=== PATIENT | female | born 1960 | race Caucasian/White ===

== ENCOUNTER 2020-04-16 10:05 | Outpatient (CLI) | payer OTHER, SELFPAY ==
--- NOTE | ~2020-04-16 | MM_ITS ---
EXAMINATION: MM screening bruno BI w davidson HISTORY: Screening TECHNIQUE: Craniocaudal and mediolateral oblique 3-D tomosynthesis images were obtained and synthetic 2-D images were generated. CAD analysis was submitted and interpreted. COMPARISON: No prior mammogram is available for comparison at this institution. BREAST PARENCHYMAL COMPOSITION: There are scattered areas of fibroglandular density. FINDINGS: There is no evidence of suspicious mass, calcification, or architectural distortion to sugg est malignancy in either breast. There has been no suspicious interval change. IMPRESSION: 1. No mammographic evidence of malignancy. 2. Recommend routine screening mammography in one year. BI-RADS Category 1: Negative Reviewed, dictated and finalized at location A.
--- NOTE | ~2020-04-16 | DEXA_ITS ---
Bone Density Report Name: Rosette Tony Age: 60 Sex: Female Ethnicity: White Date of : 1960 Indication: postmenopausal; height loss; hysterectomy; Referring Provider: PHYSICIAN NOT ON STAFF Study: Bone densitometry was performed. Exam Date: April 16, 2020 Accession number: [id number] Bone Density: Region BMD T-score Z-score Classification AP Spine (L1, L2, L3) 0.846 -1.6 -0.3 Osteopenia Femoral Neck (Left) 0.619 -2.1 -0.8 Osteopenia Total Hip (Left) 0.807 -1.1 -0.2 Osteopenia Total Hip Bilateral Avg 0.790 -1.3 -0.4 Osteopenia Femoral Neck (Right) 0.594 -2.3 -1.1 Osteopenia Total Hip (Right) 0.772 -1.4 -0.5 Osteopenia World Health Organization criteria for BMD impression classify patients as: Normal (T-score at or above -1.0), Osteopenia (T-score between -1.0 and -2.5), or Osteoporosis (T-score at or below -2.5). 10-year Fracture Risk(1): Major Osteoporotic Fracture 10% Hip Fracture 2.5% Reported Risk Factors: [place] (), Neck BMD=0.594, BMI=27.4, smoking (1) FRAX(R) Version 3.08. Fracture probability calculated for an untreated patient. Fracture probability may be lower if the patient has received treatment. Clinical Information Provided by Patient: Smokes Has the following medical conditions: Hysterectomy Patient maximum height was 68 Menopause Age: 50 No regular weight bearing exercise Drinks caffeinated beverages Onset of menses at age 15 Number of children 0 Impression: The patient has low bone mass, based on the Right Femoral Neck T-score. The patient has an estimated ten-year risk of hip fracture of 2.5% and an estimated ten-year risk of major fracture of 10%, based on the WHO FRAX algorithm. The patient has risk factors, including: smoking. Discussion: BONE DENSITY IS LOW AT ONE OR MORE SKELETAL SITES. This patient's lowest T-score is low at one or more skeletal sites. It meets the World Health Organization's (WHO) criteria for ?low bone mass? (T-score between -1.0 and -2.5). The patient's 10-year risk of fracture as calculated by FRAX is less than the threshold where pharmacological therapy is recommended by the National Osteoporosis Foundation (NOF). However, all treatment decisions require clinical judgment and consideration of individual patient factors, including patient preferences, comorbidities, previous drug use, risk factors not captured in the FRAX model (e.g., frailty, falls, vitamin D deficiency, increased bone turnover, interval significant decline in bone density) and possible under or overestimation of fracture risk by FRAX. The patient should follow a healthful lifestyle (good nutrition with adequate calcium and vitamin D, and appropriate weight-bearing exercise). Follow-Up: Consider repeating this study in 2 to 3 years to reassess this patient's status,
== END 2020-04-16 10:06 | disposition home or self-care (01) ==
DX: Z12.31 Encounter for screening mammogram for malignant neoplasm of breast (principal); Z78.0 Asymptomatic menopausal state; M85.80 Other specified disorders of bone density and structure, unspecified site
CPT/HCPCS: 77063; 77067; 77080

== ENCOUNTER 2020-04-21 13:05 | Outpatient (CLI) | payer OTHER, MEDICARE, SELFPAY ==
--- NOTE | ~2020-04-21 | XR_ITS ---
EXAMINATION: XR chest 2V 04/21/2020 13:37 INDICATION: Cough and congestion PROCEDURE: 2 view chest COMPARISON: No prior studies for comparison. FINDINGS: The lungs are clear. The cardiomediastinal silhouette is within normal limits. There are no pleural effusions. There is no pneumothorax suspected. IMPRESSION: 1: NO ACUTE CARDIOPULMONARY DISEASE. Reviewed, dictated and finalized at location B.
== END 2020-04-21 13:06 | disposition home or self-care (01) ==
DX: R05 Cough (principal)
CPT/HCPCS: 71046

== ENCOUNTER 2022-11-30 14:54 | Outpatient (CLI) | payer OTHER, MEDICARE, SELFPAY ==
--- NOTE | ~2022-11-30 | MM_ITS ---
EXAMINATION: MM screening bruno BI w davidson HISTORY: Screening mammogram TECHNIQUE: Craniocaudal and mediolateral oblique 3-D tomosynthesis images were obtained and synthetic 2-D images were generated. CAD analysis was submitted and interpreted. COMPARISON: 04/16/2020 bilateral screening mammogram examination BREAST PARENCHYMAL COMPOSITION: The breasts are almost entirely fatty. FINDINGS: There is no evidence of suspicious mass, calcification, or architectural distortion to sugg est malignancy in either breast. There has been no suspicious interval change. IMPRESSION: 1. No mammographic evidence of malignancy. 2. Recommend routine screening mammography in one year. BI-RADS Category 1: Negative Reviewed, dictated and finalized at location A.
--- NOTE | ~2022-11-30 | DEXA_ITS ---
Bone Density Report Name: KAYLA ADKINS Age: 62 Sex: Female Ethnicity: White Date of : 1960 Indication: postmenopausal; screening for osteoporosis; height loss; asthma or emphysema; hysterectomy; Referring Provider: RICHARDCRUZ Study: Bone densitometry was performed. Exam Date: November 30, 2022 Accession number: [id number] Bone Density: Region BMD T-score Z-score Classification AP Spine(L1-L4) 0.858 -1.7 -0.2 Osteopenia Femoral Neck (Left) 0.562 -2.6 -1.2 Osteoporosis Total Hip (Left) 0.779 -1.3 -0.3 Osteopenia Femoral Neck (Right) 0.559 -2.6 -1.3 Osteoporosis Total Hip (Right) 0.731 -1.7 -0.7 Osteopenia Total Hip Mean 0.755 -1.5 -0.5 Osteopenia World Health Organization criteria for BMD impression classify patients as: Normal (T-score at or above -1.0), Osteopenia (T-score between -1.0 and -2.5), or Osteoporosis (T-score at or below -2.5). 10-year Fracture Risk: FRAX not reported because: Some T-score for Spine Total or Hip Total or Femoral Neck at or below -2.5 Clinical Information Provided by Patient: Smokes Has used the following medications: Vitamin D Has the following medical conditions: Asthma or Emphysema, Hysterectomy Patient maximum height was 68 Menopause Age: 50 No regular weight bearing exercise Drinks caffeinated beverages Onset of menses at age 14 Number of children 0 Impression: The patient has osteoporosis, based on the Left Femoral Neck T-score. The patient has risk factors, including: smoking. Discussion: INCREASED RISK OF FRACTURE. BONE DENSITY IS UNDESIRABLY LOW AT ONE OR MORE SKELETAL SITES, CONSISTENT WITH POSTMENOPAUSAL OSTEOPOROSIS. This patient's lowest T-score meets the World Health Organization's (WHO) criteria for osteoporosis at one or more sites (T-score -2.5 or below). In untreated patients, the risk of osteoporotic fracture increases approximately two-fold for each 1.0 SD decrease in T-score. Low bone density is not the only risk factor for fracture; also consider factors such as patient's age, frailty or poor health, risk of falling, risk of injury, previous osteoporotic fracture, family history of osteoporosis, cigarette smoking, low body weight, etc. Not everyone with low bone mineral density has osteoporosis; osteomalacia and other metabolic bone disorders should also be considered. Patients who have osteoporosis should be evaluated for specific diseases and conditions (secondary causes) that may cause or contribute to bone loss. The [place] Association [employer] Clinical Endocrinologists (AACE) and National Osteoporosis Foundation (NOF) recommend pharmacologic intervention for all postmenopausal women whose T-score is in this range. The patient should follow a healthful lifestyle (good nutrition with adequate calcium and vitamin D, and appropriate weigh
== END 2022-11-30 14:55 | disposition home or self-care (01) ==
LOC: ANHIMG 15:05
PROVIDERS: PCP Family Medicine; Visit Provider Family Medicine
DX: Z12.31 Encounter for screening mammogram for malignant neoplasm of breast (principal); Z78.0 Asymptomatic menopausal state; M85.88 Other specified disorders of bone density and structure, other site; M85.852 Other specified disorders of bone density and structure, left thigh; M85.851 Other specified disorders of bone density and structure, right thigh; M81.0 Age-related osteoporosis without current pathological fracture
CPT/HCPCS: 77063; 77067; 77080

== ENCOUNTER 2025-03-20 10:46 | Outpatient (CLI) | payer OTHER, MEDICARE, SELFPAY ==
--- OUTSIDE RECORDS SUMMARY | 2009-09-05 05:00 | XMS_ITS | Continuity of Care Document ---
Author Organization [facility] Address [address] [place] [address] [place] [address] Phone Care Team Providers Care Journeyman Machinist Name Role Phone Tinsley OD, Laci Unavailable Unavailable Procedures Procedure Date Eye Exam & Treatment Refraction Eye Exam Established Pt Eye Exam & Treatment Refraction Advance Directives Directive Yes / No Effective Date File Name No Information Encounters Encounter Description Practice Location Reason(s) For Visit Diagnoses Date Provider Providers Copied on Encounter [facility], [address] [place] [address] [address], [place], [place], [id number], tel:[phone] [facility] No Information Mar-0 5-201 0 Tinsley OD Laci. [address], [place], [place], Formerly named [facility], . tel:[phone] [facility], [address] [place] [address] [address], [place], [place], [id number], tel:[phone] [facility] No Information Oct-0 2-200 9 Tinsley OD Laci. [address], [place], [address], [place]. tel:[phone] [facility], [address] [place] [address] [address], [place], [place], [id number], tel:[phone] [facility] No Information May- 5-200 8 Tinsley OD Laci. [address], [place], [place], Formerly named [facility], . tel:[phone] Family History Family Member Type Diagnosis Age At Onset No Information Payers Payer name Insurance type Covered green party ID Authoriza tion(s) No Information Social History Type Description Quantity Date Captured Comments Sex Female Smoking Status No Information Chief Complaint And Reason For Visit No Information Reason For Referral Reason For Referral No Information History Of Present Illness Encounter Date Complaint History Of Prese nt Illness No Information Functional Status Date Functional Assessmen t No Information Instructions Date Instruction Additional Infor mation No Information Assessments Type Assessment Date No Information Patient Care Teams Name Effective Dates (start - stop) Status Members No Information
--- NOTE | ~2025-03-20 | DEXA_ITS ---
Bone Density Report Name: KAYLA ADKINS Age: 64 Sex: Female Ethnicity: White Date of : 1960 Indication: osteopenia; height loss; asthma or emphysema; hysterectomy; Referring Provider: RICHARD, CRUZ Study: Bone densitometry was performed. Exam Date: March 20, 2025 Accession number: [id number] Bone Density: Region BMD T-score Z-score Classification AP Spine(L1-L4) 0.860 -1.7 0.0 Osteopenia Femoral Neck (Left) 0.583 -2.4 -0.9 Osteopenia Total Hip (Left) 0.847 -0.8 0.4 Normal Femoral Neck (Right) 0.577 -2.4 -1.0 Osteopenia Total Hip (Right) 0.862 -0.7 0.5 Normal Total Hip Mean 0.854 -0.8 0.5 Normal World Health Organization criteria for BMD impression classify patients as: Normal (T-score at or above -1.0), Osteopenia (T-score between -1.0 and -2.5), or Osteoporosis (T-score at or below -2.5). 10-year Fracture Risk(1): Major Osteoporotic Fracture 13% Hip Fracture 3.6% Reported Risk Factors: [place] (), Neck BMD=0.583, BMI=27.1, smoking (1) FRAX(R) Version 3.08. Fracture probability calculated for an untreated patient. Fracture probability may be lower if the patient has received treatment. Previous Exams: Region Exam Age BMD T-score BMD Change BMD Change Date g/cm2 vs Baseline vs Previous AP Spine (L1-L4) 03/20/2025 64 0.860 -1.7 0.002 (0.2%) 0.002 (0.2%) 11/30/2022 62 0.858 -1.7 Total Hip(Left) 03/20/2025 64 0.847 -0.8 0.040 (5.0%)* 0.068 (8.7%)* 11/30/2022 62 0.779 -1.3 -0.027 (-3.4%) -0.027 (-3.4%) 04/16/2020 60 0.807 -1.1 Total Hip(Right) 03/20/2025 64 0.862 -0.7 0.090 (11.7%)* 0.130 (17.8%)* 11/30/2022 62 0.731 -1.7 -0.040 (-5.2%) -0.040 (-5.2%) 04/16/2020 60 0.772 -1.4 *Denotes significance at 95% confidence level, LSC for AP Spine = 0.022 g/cm2, LSC for Total Hip = 0.027 g/cm2 Clinical Information Provided by Patient: Smokes Has used the following medications: Fosamax (i.e. alendronate), Vitamin D Has the following medical conditions: Asthma or Emphysema, Hysterectomy Patient maximum height was 68 Menopause Age: 50 No regular weight bearing exercise Drinks caffeinated beverages Onset of menses at age 14 Number of children 0 Impression: The patient has low bone mass, based on the Left Femoral Neck T-score. The patient has an estimated ten-year risk of hip fracture of 3.6% and an estimated ten-year risk of major fracture of 13%, based on the WHO FRAX algorithm. The patient has risk factors, including: smoking. No significant bone loss was observed. Discussion: BONE DENSITY IS LOW AT ONE OR MORE SKELETAL SITES. THE PATIENT'S BMD AND CLINICAL RISK FACTORS CONTRIBUTE TO THIS PATIENT'S INCREASED RISK OF FRACTURE. This patient's lowest T-score is low at one or more skeletal sites. It meets the World Health Organization's (WHO) criteria for ?low bone mass? (T-score between -1.0 and -2.5). The patient's 10-year risk of hip fracture as calculated by FRAX exceeds the threshold where pharmacological therapy is recommended by the National Osteoporosis Foundation (NOF). However, all treatment decisions require clinical judgment and consideration of individual patient factors, including patient preferences, comorbidities, previous drug use, risk factors not captured in the FRAX model (e.g., frailty, falls, vitamin D deficiency, increased bone turnover, interval significant decline in bone density) and possible under or overestimation of fracture risk by FRAX. The patient should follow a healthful lifestyle (good nutrition with adequate calcium and vitamin D, and appropriate weight-bearing exercise). Follow-Up: Consider a repeat BMD and Vertebral Fracture Assessment (VFA) exam in 2 years or sooner if medically necessary, to reassess this patient's status. Reported by: CHRIS on 03/20/2025 11:34:00 AM. Reviewed, dictated and finalized at location A.
--- OUTSIDE RECORDS SUMMARY | 2025-03-20 11:48 | XMS_ITS | Encounter Summary ---
Author Organization [facility] Address [address] [place] [address] Care Team Providers Care Salt Miner Name Role Phone Amanda Stout NP Primary Care Provider [phone] Encounter Details Date Type Department Care Team (Latest Contact Info) Description 02/26/2025 Results Follow-Up [facility] Family Medicine [address] [address] Amanda Stout, WO[employer] R[employer]ER [address] [address] Thyroid Function [place], Comprehensive metabolic panel, Hemoglobin A1c, Lipid panel Social History Tobacco Use Types Packs/Day Years Used Date Smoking Tobacco: Some Days Cigarettes 1 42.7 Started: 2022 Smokeless Tobacco: Never Comments:Trying to quit Alcohol Use Standard Drinks/Week Comments Yes 0 (1 standard drink = 0.6 oz pur e alcohol) AUDIT-C Answer Date Recorded Q1: How often do you have a drink containing alc ohol? 2-4 times a month 09/01/2023 Q2: How many drinks containi ng alcohol do you have on a typical day when you are drinking? 1 or 2 09/01/2023 Frequency of Binge Drinking Not on file 08/05 PHQ-2 Answer Date Recorded PHQ-2 Total Score (If total score is 3 or more points, staff should administer the PHQ-9) 0 09/25/2024 PHQ-9 Answer Date Recorded PHQ-9 Total Score 0 09/25/2024 Personal Safety Answer Date Recorded Have you ever been in or are you currently in a harmful physical or emotional relationship or is someone making you feel afraid or unsafe? 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 Have a nice day! JOANNA Neves * Result Encounter Note - Amanda Stout NP - 02/27/2025 5:13 AM CDT Lab results dated 02/26/2025 are as follows: 1. Minimally elevated fasting glucose, otherwise unremarkable CMP 2. Elevated hemoglobin A1c consistent with prediabetes 3. Elevated total/LDL cholesterol and triglycerides, worse than previous 4. Normal TSH level documented in this encounter Plan of Treatment Not on file documented as of this encounter Visit Diagnoses Not on filedocumented in this encounter Care Teams Salt Miner Relationship Specialty Start Date End Date Amanda Stout NP PCP - General Family Practice 04/17/20 documented as of this encounter
--- OUTSIDE RECORDS SUMMARY | 2025-03-20 11:48 | XMS_ITS | Encounter Summary ---
Author Organization [facility] Address [address] [place] [address] Care Team Providers Care Technical Training Instructor Name Role Phone Amanda Stout NP Primary Care Provider [phone] Reason for Visit * Reason Onset Date Comments Medical Question/Miscellaneous 03/19/2025 Encounter Details Date Type Department Care Team (Late st Contact Info) Description 03/19/2025 Telephone [facility] Primary Care at [address] [address] Amanda Stout NP [facility] [address] Medical Question/Miscellaneous Social History Tobacco Use Types Packs/Day Years [...] on file 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 * Telephone Encounter - Tracy Ponce - 03/19/2025 2:46 PM CDT Medical Question/Miscellaneous Caller???s Concern: called to get the Dexa Bone scan orders faxed to them The patient is supposed to be getting it done tomorrow and they need them ELISA Please fax to [phone] Does message need to be routed? Yes-Action Needed documented in this encounter Plan of Treatment Not on file documented as of this encounter Visit Diagnoses Not on filedocumented in this encounter Care Teams Technical Training Instructor Relationship Specialty Start Date End Date Amanda Stout NP PCP - General Family Practice 04/17/20 documented as of this encounter
--- OUTSIDE RECORDS SUMMARY | 2025-03-20 11:48 | XMS_ITS | Encounter Summary ---
Author Organization [facility] Healthcare Address [address] [place] [address] Care Team Providers Care Spring Coiler Hand Name Role Phone Amanda Stout NP Primary Care Provider [phone] Reason for Visit * Reason Onset Date Comments Billing Question 02/18/2025 Encounter Details Date Type Department Care Team ([facility] st Contact Info) Description 02/18/2025 Telephone [facility] Primary Care at [address] [phone] Amanda Stout EMPLOYMENT ATTORNEY [facility] [address] Billing Question Social History Tobacco Use Types Packs/Day Years [...] on file 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 Yes. What did billing tell the patient? That charge was Amanda [place] for 09/06/23 Additional Comments: Patient called stating she received bill from [employer] for $75. She was told it was for a charge from Amanda [place] from 09/06/23, but she didn't see Amanda that day. Had her call [facility] to check and see what charge was for. Does message need to be routed? No documented in this encounter Plan of Treatment Not on file documented as of this encounter Visit Diagnoses Not on filedocumented in this encounter Care Teams Spring Coiler Hand Relationship Specialty Start Date End Date Amanda Stout NP PCP - General Family Practice 04/17/20 documented as of this encounter
--- OUTSIDE RECORDS SUMMARY | 2025-03-20 11:48 | XMS_ITS | Encounter Summary ---
Author Organization [facility] Care Team Providers Care Cost Control Supervisor Name Role Phone No, Physician Primary Care Provider [phone] Kerri Landaverde MD Primary Care Provider [phone] Amanad Stout NP Primary Care Provider [phone] Encounter Details Date Type Department Care Team (Latest Contact Info) Description 12/30/2017 Orders Only [facility] ProvidereLia MD [address] [place] [address] Social History Tobacco Use Types Packs/Day Years Used Date Smoking Tobacco: Every Day Smokeless Tobacco: Never Alcohol Use Standard Drinks/Week Comments Yes 0 (1 standard drink = 0.6 oz pur e alcohol) Comments Unknown Sex and Gender Information Value Date Recorded Sex Assigned at Not on file 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 us Historical Provider Final Res ult documented in this encounter Visit Diagnoses Not on filedocumented in this encounter Additional Health Concerns Infection Onset Date Last Indicated Resolved Time COVID: Suspected 05/07/2021 05/07/2021 05/07/2021 9:16 PM CDT documented as of this encounter Care Teams Cost Control Supervisor Relationship Specialty Start Date End Date No, Physician PCP - General 12/30/17 11/28/19 Kerri Landaverde MD PCP - General Family Medicine 11/29/19 04/16/20 Amanda Stout NP PCP - General Family Practice 04/17/20 documented as of this encounter
--- OUTSIDE RECORDS SUMMARY | 2025-03-20 11:48 | XMS_ITS | Clinical Summary ---
[facility] [address] [place] [address] Care Team Providers Care Armature [employer] Name Role Phone Amanda Stout NP Primary Care Provider [phone] Allergies Active Allergy Reactions Criticality Noted Date Comments Morphine Hives Medium 08/28/2023 Medications clonazePAM (KlonoPIN) 0.5 mg tablet 1 tablet (0.5 mg total) nightly as needed for anxiety 11/06/19 20 Active ARIPiprazole (ABILIFY) 5 mg tabletIndications :mood Take 1 tablet (5 mg total) by mouth every morning 10/30/19 21 Active lamoTRIgine (LaMICtal) 25 mg tabletIndications :mood Take 1 tablet (25 mg total) by mouth every morning 11/24/19 22 Active alendronate (FOSAMAX) 70 mg tablet Take 1 tablet (70 mg total) by mouth every 7 days Take in the morning with a full glass of water, on an empty stomach, and do not take anything else by mouth or lie down for the next 30 min. 12 tablet 09/05/19 24 Active buPROPion SR (WELLBUTRIN SR) 150 mg 12 hr tablet Take 1 tablet (150 mg total) by mouth daily 11/22/19 24 Active dextroamphetamine -amphetamine (ADDERALL) 20 mg tablet Take 1 tablet (20 mg total) by mouth daily 11/26/19 24 Active albuterol HFA (Ventolin HFA) 90 mcg/actuation inhalerIndication s:Chronic obstructive pulmonary disease, unspecified COPD type ([facility]) Inhale 2 puffs every 4 (four) hours as needed for wheezing or shortness of breath 18 g 5 02/02/20 Active tiotropium-olodat Anuj (STIOLTO) 2.5-2.5 mcg/actuation inhaler Inhale 1 puff daily 1 each 3 04/09/20 24 2024 Active losartan (COZAAR) 100 mg tabletIndications :Primary hypertension Take 1 tablet (100 mg total) by mouth daily 90 tablet 1 09/26/19 25 Active gabapentin (NEURONTIN) 300 mg capsuleIndication s:Chronic bilateral low back pain with bilateral sciatica Take 1 capsule (300 mg total) by mouth 3 (three) times a day 270 capsule 1 09/26/19 25 Active amLODIPine (NORVASC) 10 mg tabletIndications :Primary hypertension Take 1 tablet (10 mg total) by mouth daily 90 tablet 1 10/04/19 25 2024 Active cetirizine (ZyrTEC) 10 mg tabletIndications :Non-seasonal allergic rhinitis due to other allergic trigger TAKE 1 TABLET(10 MG) BY MOUTH DAILY 90 tablet 01/18/20 25 Active montelukast (SINGULAIR) 10 mg tablet TAKE 1 TABLET(10 MG) BY MOUTH EVERY NIGHT 90 tablet 02/16/20 25 Active atorvastatin (LIPITOR) 80 mg tabletIndications :Mixed hyperlipidemia Take 1 tablet (80 mg total) by mouth daily 90 tablet 1 02/28/20 [address] (NexIUM) 40 mg capsuleIndication s:Gastroesophagea l reflux disease, unspecified whether esophagitis present TAKE 1 CAPSULE BY MOUTH DAILY BEFORE BREAKFAST 90 capsule 1 03/11/[address] (NexIUM) 40 mg capsuleIndication s:Gastroesophagea l reflux disease, unspecified whether esophagitis present Take 1 capsule by mouth daily before breakfast. 90 capsule 1 09/26/19 25 2024 Discontinued atorvastatin (LIPITOR) 40 mg tabletIndications :hyperlipidemia Take 1 tablet (40 mg total) by mouth nightly 90 tablet 1 09/26/19 25 2024 Discontinued(A lternate therapy) Active Problems Problem Noted Date Diagnosed Date Age-related osteoporosis wit hout current pathological fracture 09/23/2023 Assessment & Plan (09/25/2024 7:56 PM CDT): Continued on Fosamax 70 mg weekly Previously on vitamin-D supplement, not currently taking, will recheck vitamin-D level Assessment & Plan (09/23/2023 7:46 AM CDT): New diagnosis Continued on Fosamax Encouraged calcium and vitamin-D supplementation in daily weight-bearing exercise Screening for colon cancer 07/19/2022 Assessment & Plan (07/19/2022 9:05 AM SECURITY REP): Referral made to die barber for consideration of screening colonoscopy. Primary hypertension 07/19/2022 Assessment & Plan (09/25/2024 7:54 PM CDT): Uncontrolled Continued on losartan 100 mg daily and amlodipine 5 mg daily Encouraged to monitor blood pressure at home the next 2 days and notify office if readings Assessment & Plan (12/30/2023 10:39 AM CDT): Chronic, significantly improved with increase in dose of medication and addition of medication Continued on losartan 100 mg daily and amlodipine 5 mg daily Encouraged to continue to monitor blood pressure at home and to notify office with any concerns Recommended follow-up in 4 weeks Assessment & Plan (12/15/2023 5:26 AM CDT): Chronic, uncontrolled on medication Recommended ER evaluation, declined Increased dose of losartan from 25 mg daily to 100 mg daily Advised to continue to monitor blood pressure daily, recommended follow-up next week, however unavailable next week, instructed to send a [employer] message next week with update on blood pressure reading and follow-up in 2 weeks Assessment & Plan (09/23/2023 7:37 AM CDT): Chronic, uncontrolled on medication Continued on lisinopril HCT Recommended follow-up in 3 months for recheck Assessment & Plan (07/19/2022 9:06 AM SECURITY REP): Chronic, with worsened/uncontrolled systolic, controlled diastolic at today's visit-continued on losartan. Encouraged to monitor at home and to notify office if blood pressure is averaging 140/90 or greater so adjustment can be made in dose of losartan. Vitamin D deficiency 07/19/2022 Assessment & Plan (09/25/2024 7:55 PM CDT): Controlled with supplementation, however not currently taking Will monitor Assessment & Plan (09/23/2023 7:46 AM CDT): Chronic, controlled with supplementation Encouraged to continue vitamin-D supplement Assessment & Plan (07/19/2022 9:03 AM SECURITY REP): Chronic, stability unknown, labs pending previously ordered, uncontrolled at last check, not on supplement-reordered vitamin-D 25 [place]. Encounter for Medicare annual wellness exam 07/04 Assessment & Plan (09/25/2024 7:55 PM CDT): Reviewed past and current medical history, surgical history, social history, family history, current medications, and allergies. The chart was updated to identify any changes in these areas. Assessment & Plan (09/23/2023 7:47 AM CDT): Reviewed past and current medical history, surgical history, social history, family history, current medications, and allergies. The chart was updated to identify any changes in these areas. A ROS and PE were performed. Medications were ordered. Discussed screening colonoscopy, well woman exam/cervical cancer screening, screening mammogram, monthly breast self-exams, bone density testing, and recommended immunizations. Patient will follow-up in 3 months for further evaluation and management or sooner if needed. Assessment & Plan (07/19/2022 9:07 AM SECURITY REP): Reviewed past and current medical history, surgical history, social history, family history, current medications, and allergies. A ROS and PE were performed. Medications and labs were ordered and referrals were made. Discussed screening colonoscopy, well woman exam/cervical cancer screening, screening mammogram, monthly breast self- exams, bone density testing, and recommended immunizations. Patient will follow-up in 6 months for further evaluation and management or sooner if needed. Osteopenia of multiple sites 11/29/2021 Assessment & Plan (09/25/2024 7:56 PM CDT): Continued on Fosamax 70 mg weekly Previously on vitamin-D supplement, not currently taking, will recheck vitamin-D level Assessment & Plan (09/23/2023 7:45 AM CDT): Chronic, stability unknown Continued on Fosamax Encouraged calcium and vitamin-D supplementation in daily weight-bearing exercise Assessment & Plan (07/19/2022 9:07 AM SECURITY REP): Chronicity and stability unknown-ordered bone density test. Assessment & Plan (11/29/2021 10:44 AM CDT): Ordered bone density test. Elevated blood sugar 12/12/2020 Assessment & Plan (09/25/2024 7:52 PM CDT): Controlled Reviewed 11/16/23 [id number] Recommended diet low in concentrated sweets, such as desserts, juice, soda, and sweet tea, and limiting starchy foods, such as white potatoes, rice, pasta, and corn Assessment & Plan (09/23/2023 7:45 AM CDT): Chronic, stable, with most recent hemoglobin A1c normal, dated 10/12/2022 Continue to monitor periodically Assessment & Plan (07/19/2022 9:14 AM SECURITY REP): Chronic, improved at last check-ordered CMP and hemoglobin A1c, CMP ordered previously never completed. Assessment & Plan (12/12/2020 6:26 PM CDT): Chronic, stable-ordered hgbA1C recently, however not done with CMP and lipid panel. Ordered hgbA1C and CMP to be done prior to next visit in 3 months. Mixed hyperlipidemia 12/08/2020 Assessment & Plan (09/25/2024 7:50 PM CDT): Controlled Continued on atorvastatin 40 mg daily Assessment & Plan (09/23/2023 7:34 AM CDT): Chronic, uncontrolled on medication, with dose adjustment made, due for recheck Continued on atorvastatin 40 mg daily Encouraged to get lipid panel done, previously ordered Assessment & Plan (07/19/2022 9:09 AM SECURITY REP): Chronic, improved, uncontrolled at last check, lipid panel ordered previously pending completion, on medication-continued on atorvastatin. Reordered lipid panel. Assessment & Plan (11/29/2021 10:45 AM CDT): Chronic, improved on medication, however states has been off atorvastatin for several weeks-advised to restart atorvastatin as directed, refills sent to pharmacy, lipid panel ordered to be done prior to next visit, but at least 4 weeks after restarting medication. Assessment & Plan (12/12/2020 6:24 PM CDT): Recent finding, improved slightly on recheck-started on atorvastatin 20 mg once daily in PM for elevated lipids. Ordered 12-hour fasting lab work done prior to next visit in 3 months. Assessment & Plan (12/08/2020 2:32 PM CDT): Ordered repeat lipid panel. Chronic neck pain 12/08/2020 Assessment & Plan (09/25/2024 7:50 PM CDT): Uncontrolled, but not as problematic as low back Increased gabapentin to TID Ordered x-rays in the past, not done, however can reorder if/when interested, and can also consider referral to physical therapy Assessment & Plan (12/15/2023 5:27 AM CDT): Chronic, stable, controlled with OTC medication Encouraged to continue OTC medication as directed as needed, can discuss prescription pharmaceutical options if/when needed Can ordered x-rays and consider referral to physical therapy if/when interested Assessment & Plan (09/23/2023 7:44 AM CDT): Chronic, stable, controlled with OTC medication Encouraged to continue OTC medication as directed as needed, can discuss prescription pharmaceutical options if/when needed Can ordered x-rays and consider referral to physical therapy if/when interested Assessment & Plan (07/19/2022 9:16 AM SECURITY REP): Chronic, stable, controlled with OTC medication PRN-continued on OTC medication for symptoms PRN. Imaging previously ordered never completed, can reorder imaging if/when interested. Assessment & Plan (12/08/2020 2:32 PM CDT): See plan of care for chronic bilateral low back pain with bilateral sciatica. Need for vaccination 04/23/2020 Assessment & Plan (07/19/2022 9:08 AM SECURITY REP): Seasonal influenza and Prevnar 20 vaccine given. Assessment & Plan (04/23/2020 4:46 PM CDT): Influenza and Pneumovax 23 given today and recommendations for additional vaccines discussed with patient. Family history of first degree relative with dem entia 04/23/2020 Assessment & Plan (04/23/2020 4:50 PM CDT): Referred to neurology. Family history of brain aneurysm 04/23/2020 Assessment & Plan (04/23/2020 4:50 PM CDT): Referred to neurology. Post-menopause 03/26/2020 Assessment & Plan (07/19/2022 9:06 AM SECURITY REP): Ordered bone density test. Assessment & Plan (04/23/2020 4:45 PM CDT): Requested results of bone density test from [facility]. Assessment & Plan (03/26/2020 6:16 PM CDT): Ordered bone density test. Screening for breast cancer 03/26/2020 Assessment & Plan (07/19/2022 9:05 AM SECURITY REP): Ordered screening mammogram. Assessment & Plan (11/29/2021 10:44 AM CDT): Ordered screening mammogram. Assessment & Plan (04/23/2020 4:44 PM CDT): Requested results of screening mammogram from [facility]. Patient states she received notification that her test was normal. Assessment & Plan (03/26/2020 6:17 PM CDT): Ordered screening mammogram. Gastroesophageal reflux disease 03/26/2020 Assessment & Plan (09/25/2024 11:38 AM CDT): Controlled Continued on Nexium Assessment & Plan (09/23/2023 7:37 AM CDT): Chronic, stable, controlled with medication Continued on Nexium Assessment & Plan (07/19/2022 9:12 AM SECURITY REP): Chronic, stable, controlled with medication-continued on esomeprazole, refills sent to pharmacy per patient request. Assessment & Plan (04/23/2020 4:49 PM CDT): Chronic, stable, uncontrolled on medication prescribed at last visit-Started on Nexium 40 mg once daily in the morning 1/2 hour before breakfast and decreased Pepcid to 20 mg once daily in the PM. Assessment & Plan (03/26/2020 6:15 PM CDT): Chronic, uncontrolled-Started on Pepcid 20 mg BID 1/2 hour before meals. Advised to avoid foods that precipitate or exacerbate symptoms. Tobacco abuse 03/26/2020 Assessment & Plan (09/23/2023 7:33 AM CDT): Chronic, currently on nicotine gum Discussion regarding smoking cessation >5 minutes Switch from nicotine gum to Nicoderm patch, cautioned not to smoke while wearing patch and encouraged to rotate application site to avoid skin irritation Assessment & Plan (07/19/2022 9:05 AM SECURITY REP): Chronic, has prescription for Zyban and nicotine patches, counseled on the importance of cessation, however states she is not yet ready to quit. Assessment & Plan (11/29/2021 10:44 AM CDT): Chronic-prescribed the nicotine patch as directed. Encouraged not to smoke while using the patch. Assessment & Plan (04/23/2020 4:44 PM CDT): Approximately 5 minutes spent discussing with patient different options for smoking cessation, states wants to quit smoking, but also wants her to quit with her. She states she is not all in just yet. Assessment & Plan (03/26/2020 6:18 PM CDT): Discussed cessation, offered suggestions and advised can prescribe medication to facilitate smoking cessation if/when interested. COPD (chronic obstructive pulmonary disease) Assessment & Plan (09/25/2024 7:48 PM CDT): Controlled Continued on Anoro and albuterol inhalers Encouraged to follow-up with tank truck operator as recommended Assessment & Plan (12/15/2023 5:27 AM CDT): Chronic, stable, controlled on medication Continued on Anoro and albuterol inhalers Encouraged to follow-up with tank truck operator as recommended Assessment & Plan (09/23/2023 7:40 AM CDT): Chronic, stable, controlled on medication Continued on Anoro and albuterol inhalers Encouraged to follow-up with tank truck operator as recommended Assessment & Plan (07/19/2022 9:15 AM SECURITY REP): Chronic, stable, with symptoms controlled on inhalers-continued on Anoro and albuterol MDI. Encouraged to follow-up with tank truck operator as recommended and to complete follow-up pulmonary function test and CT chest. Assessment & Plan (11/29/2021 10:47 AM CDT): Chronic, was with worsening cough, previously referred to and established care with a tank truck operator, Dr. Ngo, had PFT, CT chest, and echocardiogram done, has not seen tank truck operator since testing, also not using inhaler as directed due to cost-advised to call tank truck operator today to schedule a follow-up visit, also to discuss alternatives to Combivent. Prescription for benzonatate capsules sent to pharmacy to use as directed as needed for cough. Assessment & Plan (04/23/2020 4:54 PM CDT): Chronic, stable, controlled on medications-advised to continue Symbicort BID and encouraged to rinse mouth after use. Requested results of chest xray from [facility]. Assessment & Plan (03/26/2020 6:19 PM CDT): Chronic, stable, persistent-Advised to continue Symbicort. Chest xray ordered to be done prior to next visit. Chronic bilateral low back pain with bilateral s ciatica 03/26/2020 Assessment & Plan (09/25/2024 7:50 PM CDT): Uncontrolled Increased gabapentin to TID Ordered x-rays in the past, not done, however can reorder if/when interested, and can also consider referral to physical therapy Assessment & Plan (09/23/2023 7:41 AM CDT): Chronic, stable, controlled with OTC medication Encouraged to continue OTC medication as directed as needed, can discuss prescription pharmaceutical options if/when needed Ordered x-rays in the past, not done, however can reorder if/when interested, and can also consider referral to physical therapy Assessment & Plan (07/19/2022 9:17 AM SECURITY REP): Chronic, stable, controlled with OTC medication PRN-continued on OTC medication for symptoms PRN. Imaging previously ordered never completed, can reorder imaging if/when interested. Assessment & Plan (12/08/2020 2:30 PM CDT): Started on gabapentin 300 mg once daily, advised can increase as soon as tomorrow to twice daily, and eventually can take three times daily if needed (instructed if stopping gabapentin, must gradually taper off medication). Also, referred to pain management for further evaluation and management. Assessment & Plan (03/26/2020 6:24 PM CDT): Discussed OTC medications such as Tylenol, ibuprofen (Motrin/Advil), naproxen sodium (Aleve) and Excedrin Migraine for headache and low back pain. Instructed to watch for GI symptoms if taking NSAIDs. Migraine without status migrainosus, not intract able 02/03/2018 Assessment & Plan (09/25/2024 7:44 PM CDT): Controlled Encouraged to continue OTC medication as directed as needed, can discuss prescription pharmaceutical options if/when needed Assessment & Plan (09/23/2023 7:43 AM CDT): Chronic, stable, controlled with OTC medication Encouraged to continue OTC medication as directed as needed, can discuss prescription pharmaceutical options if/when needed Assessment & Plan (07/19/2022 9:10 AM SECURITY REP): Chronic, stable, controlled with OTC medication PRN-will monitor for increased frequency and/r severity of headaches. Lumbar degenerative disc disease 02/01/2018 Assessment & Plan (09/23/2023 7:42 AM CDT): Chronic, stability unknown, with chronic low back pain Low back pain chronic, stable, controlled with OTC medication Encouraged to continue OTC medication as directed as needed, can discuss prescription pharmaceutical options if/when needed Ordered x-rays in the past, not done, however can reorder if/when interested, and can also consider referral to physical therapy Assessment & Plan (07/19/2022 9:12 AM SECURITY REP): Chronic, with episodic low back pain controlled with OTC medication PRN-will monitor for increase in frequency and/or severity of pain. X-rayed ordered previously never completed, can reorder imaging if/when interested. Mild recurrent major depression 02/01/2018 Assessment & Plan (09/25/2024 7:44 PM CDT): Controlled Reviewed PHQ-9=0, ERLINDA-7=1 Continued on Abilify, bupropion SR, clonazepam, and Lamictal per Psychiatry Encouraged to follow-up with Psychiatry as recommended Advised if suicidal ideation or thoughts of harming self or others, go to ER and/or call [phone] for assistance Assessment & Plan (12/15/2023 5:26 AM CDT): Chronic, stability unknown, uncontrolled with medication Reviewed PHQ-9=14, ERLINDA-7=18, attributes scores to recent DUI Continued on Abilify, bupropion SR, clonazepam, and Lamictal per Psychiatry Encouraged to follow-up with Psychiatry as recommended Advised if suicidal ideation or thoughts of harming self or others, go to ER and/or call [phone] for assistance Assessment & Plan (09/23/2023 7:43 AM CDT): Chronic, stable, controlled with medication Continued on Abilify, Pristiq, bupropion, clonazepam, and Lamictal per Psychiatry Encouraged follow-up Psychiatry as recommended Advised if suicidal ideation or thoughts of harming self or others, go to ER and/or call [phone] for assistance Assessment & Plan (07/19/2022 9:11 AM SECURITY REP): Chronic, stable, controlled with medication-continued on Lamictal, Abilify, Cogentin, clonazepam, and Pristiq per Psychiatry. Encouraged to follow-up with psychiatrist as recommended. Attention deficit disorder (ADD) without hyperac tivity 11/17/2013 Overview (10/14/2016): ATTN DEFIC NONHYPERACT Assessment & Plan (09/25/2024 11:40 AM CDT): Controlled Continued on Adderall per Psychiatry Assessment & Plan (09/23/2023 7:32 AM CDT): Chronic, stable, controlled with medication Continued on Adderall per Psychiatry Assessment & Plan (07/19/2022 9:02 AM SECURITY REP): Chronic, stable, controlled with medication-continued on Adderall. Encouraged follow-up with psychiatrist as recommended. Assessment & Plan (03/26/2020 6:26 PM CDT): Chronic, stable, controlled on medication-Continue Vyvanse. Chronic bronchitis, simple Assessment & Plan (09/25/2024 7:55 PM CDT): Controlled Continued on Stiolto, Singulair, and albuterol inhalers Encouraged to follow-up with tank truck operator as recommended Assessment & Plan (09/23/2023 7:40 AM CDT): Chronic, stable, controlled on medication Continued on Anoro and albuterol inhalers Encouraged to follow-up with tank truck operator as recommended Resolved Problems Problem Noted Date Diagnosed Date Resolved Date Closed displaced fracture of left clavicle 08/31/2023 09/25/2024 Assessment & Plan (09/23/2023 7:48 AM CDT): Acute, status post open reduction internal fixation on 09/06/2023 Encouraged to follow-up with orthopedic surgeon as recommended Symptoms of upper respiratory infection (URI) 11/18/1911/29/2021 Diarrhea 12/12/2020 07/19/2022 Assessment & Plan (12/12/2020 6:27 PM CDT): Acute-discussed not likely related to blood pressure medication and should resolve within a week, if not notify office. Chronic bilateral thoracic back pain 12/08/2020 09/25/2024 Assessment & Plan (09/23/2023 7:44 AM CDT): Chronic, stable, controlled with OTC medication Encouraged to continue OTC medication as directed as needed, can discuss prescription pharmaceutical options if/when needed Can ordered x-rays and consider referral to physical therapy if/when interested Assessment & Plan (07/19/2022 9:17 AM SECURITY REP): Chronic, stable, controlled with OTC medication PRN-continued on OTC medication for symptoms PRN. Imaging previously ordered never completed, can reorder imaging if/when interested. Assessment & Plan (12/08/2020 2:31 PM CDT): See plan of care for chronic bilateral low back pain with bilateral sciatica. Gastroesophageal reflux dise ase without esophagitis 05/19/2020 05/19/2020 Assessment & Plan (05/19/2020 12:47 PM SECURITY REP): Ordered CBC. Fatigue 03/26/2020 07/19/2022 Assessment & Plan (03/26/2020 6:14 PM CDT): Acute-Ordered CBC and TSH with reflex to T4. Need for hepatitis C screening test 03/26/2020 11/29/2021 Assessment & Plan (03/26/2020 6:16 PM CDT): Ordered Hepatitis C test. Screening cholesterol level 03/26/2020 11/29/2021 Assessment & Plan (03/26/2020 6:17 PM CDT): Ordered lipid panel. Encounter to establish care with new doctor 03/26/2020 11/29/2021 Assessment & Plan (03/26/2020 6:13 PM CDT): Reviewed past and current medical history, surgical history, social history, family history, current medications, and allergies. A ROS and PE were performed. Medications, labs, screening mammogram, bone density test, and chest xray were ordered. Discussed smoking cessation, screening colonoscopy, and recommended immunizations, will review again at next visit. Patient will follow-up in 4 weeks for regular well visit/exam to review medications (advised to bring all medications to next visit, did not seem familiar with the medication she was taking) and test results, and sooner if needed. Nonintractable episodic headache 03/26/2020 09/25/2024 Assessment & Plan (09/23/2023 7:41 AM CDT): Chronic, stable, controlled with OTC medication Encouraged to continue OTC medication as directed as needed, can discuss prescription pharmaceutical options if/when needed Assessment & Plan (07/19/2022 9:08 AM SECURITY REP): Chronic, episodic, controlled with OTC medication PRN-will monitor for increased frequency and/or severity of headaches. Assessment & Plan (03/26/2020 6:22 PM CDT): Chronic, stable, episodic-Treats with OTC meds when needed, previously prescribed Imitrex. Advised to keep a headache log noting time of day, relationship to meals/type of food eaten, staying up late, getting up early, and stress. Carpal tunnel syndrome 03/26/202004/23 Assessment & Plan (03/26/2020 6:23 PM CDT): Chronic, stable-Previously evaluated for surgery, considering. Acute bilateral low back ann marie n with bilateral sciatica 11/30/2019 03/26/2020 Assessment & Plan (11/30/2019 12:27 PM CDT): Ibuprofen for inflammation and pain as directed (advised not to take with any eqga-ciu-fembjru ibuprofen, Advil, Motrin, Aleve, or naproxen sodium, but can take Tylenol) and gabapentin one pill at bedtime the first day, then starting tomorrow, twice daily in the morning and at bedtime. Once pain has been under control for 7-10 days, can decrease gabapentin to once daily for 3-4 days, than stop. If symptoms don't improve, resolve, or new symptoms develop, follow-up with PCP. Dysthymia 11/17/2013 03/26/2020 Overview (10/14/2016): NEUROTIC DEPRESSION Encounters Date Type Department Care Team Description 03/19/2025 Telephone [facility] at [address] [place] [address] Amanda Stout NP Medical Question/Miscellaneous 02/27/2025 Telephone [facility] [address] [place] [phone] Amanda Stout NP 02/26/2025 Results Follow-Up [facility] [address] [place] [phone] Amanda Stout NP Thyroid Function [place], Comprehensive metabolic panel, Hemoglobin A1c, Lipid panel 02/18/2025 Telephone [facility] at [address] [place] [address] Amanda Stout NP Billing Question from Last 3 Months Immunizations Immunization Administration Dates Next Due Influenza, Quadrivalent, Spl it, Preservative Free, Intramuscular 07/15/2022,04/23/2020 Influenza, Unspecified 04/03/2024(Deferr ed: Patient Refused),04/03/2022(Deferred: Patient Refused),04/03/2022(Deferred: Patient Refused) Pneumococcal Conjugate Pcv20 07/15/2022 Pneumococcal Polysaccharide PPV23 04/23/2020 Surgical History Surgery Date Site/Laterality Comments HYSTERECTOMY 07/04/2007 - 07/03/2008 Hysterectomy CARPAL TUNNEL RELEASE Bilateral ? 1999 Medical History Medical History Date Comments Hx Other Medical Carpal tunnel s yndrome...plans for getting surgery Headache Headaches Acquired scoliosis Scoliosis Anxiety Depression Gastroesophageal reflux dise ase without esophagitis 05/19/2020 Hypertension 2010 Closed displaced fracture of left clavicle 08/31/2023 Family History Medical History Relation Name Comments Atrial fibrillation Father Atrial F ibrillation; Coronary artery disease Father Reji nary artery disease; Dementia Father Alcohol abuse Maternal Grandfather Ed nicolas carpenter; Diabetes Maternal Grandmother Ana Rosa valenzuela Diabet es mellitus; Brain Aneurysm Mother Cancer -brain tumor; Other Mother brain aneurism in 40s; Thyroid disease Sister Thyroid dise ase; Anesthesia problems Neg Hx Relation Name Status Comments Father Maternal Grandfather Ed nicolas Maternal Grandmother Ana Rosa valenzuela Mother Sister Social History Tobacco Use Types Packs/Day Years [...] on file 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 Gender Identity Not on file Sexual Orientation Not on file Obstetrics History Last Filed Vital Signs Vital Sign Reading Time Taken Comments Blood Pressure 177/74 10/01/2024 8:38 AM CDT Pulse 78 09/25/2024 11:03 AM CDT Temperature 36.8 C (98.2 F) 09/25/2024 11:03 AM CDT Respiratory Rate 14 09/25/2024 11:03 AM CDT Oxygen Saturation 98% 09/25/2024 11:03 AM CDT Inhaled Oxygen Concentration - - Weight 78.5 kg (173 lb 1.6 oz) 09/25/2024 11:03 AM CDT Height 168 cm (5' 6.14) 09/25/2024 11:03 AM CDT Body Mass Index 27.82 09/25/2024 11:03 AM CDT Plan of Treatment Health Maintenance Due Date Last Done Comments DTaP/Tdap/Td Vaccine (1 - Tdap) 1972 Zoster Vaccine (1 of 2) 2011 Breast Cancer Screening-Mammogram 12/01/2023 023 Covid-19 Vaccine (2 - 2024-2 6 season) 2025 10/11/2020 Influenza Vaccine (#1) 2025 07/15/2022, 2019 Lung Cancer Screening 04/09/2025 04/08/2024 , 09/14/2022, 09/07/2021 Depression Screening 09/25/2025 09/25/2024, 09/25/2024, 12/13/2023, Additional history exists Regular Well Visit/Exam 18-64 09/25/2025, 09/22/2023, 07/15/2022, Additional history exists Colon Cancer Screening-Colonoscopy 01/27/2027 01/27/2017 Cervical Cancer Screening Discontinued 07/12/2016 Colon Cancer Screening-CT Colonography Discontinued 01/27/2017 Colon Cancer Screening-DNA Stool Discontinued 01/28/20 Colon Cancer Screening-FIT Discontinued 01/27/2017 Colon Cancer Screening-Sigmoidoscopy Discontinued 01/27/2017 Hepatitis C Screening Completed 10/06/2020 Pneumococcal vaccine <65 Completed 07/15/2022, 04/04 Hepatitis B Screening Completed Medical Devices Implanted Type Area Bread Wrapper Device Identifier Shelf Expiration Date Model / Serial / Lot Synthes 3.5mm 6mm 18mm 2.5mm Self Tap Small Hexagonal Socket Low Profile 204.818 - [id number] Implanted:Qty: 2 on 09/06/2023 by Ashley Gomez MD at [facility] Screw Left: Clavicle Synthes I 204.818 / / Synthes 2.7mm 5mm 16mm 2.5mm Self Tap Spherical Head Small Hexagonal 202.816 - [id number] Implanted:Qty: 1 on 09/06/2023 by Ashley Gomez MD at [facility] Screw Left: Clavicle Synthes I 202.816 / / Synthes 3.5mm 6mm 16mm 2.5mm Self Tap Small Hexagonal Socket Low Profile 204.816 - [id number] Implanted:Qty: 1 on 09/06/2023 by Ashley Gomez MD at [facility] Screw Left: Clavicle Synthes I 204.816 / / Synthes 3.5mm 6mm 12mm 2.5mm Self Tap Small Hexagonal Socket Low Profile 204.812 - [id number] Implanted:Qty: 2 on 09/06/2023 by Ashley Gomez MD at [facility] Screw Left: Clavicle Synthes I 204.812 / / Synthes 3.5mm 6mm 14mm 2.5mm Self Tap Small Hexagonal Socket Low Profile 204.814 - [id number] Implanted:Qty: 1 on 09/06/2023 by Ashley Gomez MD at [facility] Screw Left: Clavicle Synthes I 204.814 / / 8 Hole Plate Implanted:Qty: 1 on 09/06/2023 by Ashley Gomez MD at [facility] Left: Clavicle Other 029 / / Description:SYNTHES Explanted Type Area Bread Wrapper Device Identifier Shelf Expiration Date Model / Serial / Lot Synthes 3.5mm 6mm 16mm 2.5mm Self Tap Small Hexagonal Socket Low Profile 204.816 - [id number] Explanted:Qty: 1 on 09/06/2023 by Ashley Gomez MD at [facility] Screw Left: Clavicle Synthes I 204.816 / / Procedures Procedure Name Priority Date/Time Associated Diagnosis Comments THYROID FUNCTION CASCADE Routine 02/26/2025 8:44 AM CDT Screening for thyroid disorder LIPID PANEL Routine 02/26/2025 8:44 AM CDT Mixed hyperlipidemia HEMOGLOBIN A1C Routine 02/26/2025 8:44 AM CDT Elevated blood sugar COMPREHENSIVE METABOLIC PANEL Routine 02/26/2025 8:44 AM CDT Primary hypertension Elevated blood sugar CT LUNG CANCER SCREENING Schedule Routine, Read Routine (OP Routine) 04/08/2024 8:59 AM CDT Cigarette nicotine dependence without complication HEPATITIS C ANTIBODY Routine 10/06/2020 8:19 AM CDT Need for hepatitis C screening test HM COLONOSCOPY Routine 01/27/2017 PAP SMEAR Routine 07/12/2016 from Last 3 Months or Most Recently Relevant to Health Maintenance Results * Thyroid Function [place] (02/26/2025 8:44 AM CDT) TSH 2.34 0.40 - 4.50 mIU/L [facility] Blood 02/26/2025 8:44 AM CDT 02/26/2025 8:46 AM CDT Narrative [facility] - 02/26/2025 11:36 PM CDT FASTING:YES FASTING: YES us Amanda Stout NP LAB BLOOD ORDERABLES Final Resul t Performing Organization Address [facility] Co de Phone Number [facility] [address] [place] [address] * (ABNORMAL) Hemoglobin A1c (02/26/2025 8:44 AM CDT) Pathologist [facility] Hgb A1C 5.7(H) <5.7 % of total Hgb [employer] [facility] [facility] Comment: For someone without known diabetes, a hemoglobin A1c value between 5.7% and 6.4% is consistent with prediabetes and should be confirmed with a follow-up test. For someone with known diabetes, a value <7% indicates that their diabetes is well controlled. A1c targets should be individualized based on duration of diabetes, age, comorbid conditions, and other considerations. This assay result is consistent with an increased risk of diabetes. Currently, no consensus exists regarding use of hemoglobin A1c for diagnosis of diabetes for children. Blood 02/26/2025 8:44 AM CDT 02/26/2025 8:46 AM CDT Narrative [facility] - 02/26/2025 11:36 PM CDT FASTING:YES FASTING: YES us Amanda Stout NP LAB BLOOD ORDERABLES Final Resul t Performing Organization Address [facility] Co de Phone Number [facility] [address] [place] [address] * (ABNORMAL) Lipid panel (02/26/2025 8:44 AM CDT) Pathologist [facility] Cholesterol 223(H) <200 mg/dL [employer] HDL 54 > OR = 50 mg/dL [employer] [facility] [facility] Triglycerides 196(H) <150 mg/dL [employer] LDL 135(H) mg/dL (calc) [facility] Comment: Reference range: <100 Desirable range <100 mg/dL for primary prevention; <70 mg/dL for patients with CHD or diabetic patients with > or = 2 CHD risk factors. LDL-C is now calculated using the Thang calculation, which is a validated novel method providing better accuracy than the Friedewald equation in the estimation of LDL-C. Wilver MCNEILL et al. ANAJLI. 2013;310(19): 1914-6103 (http://education.Tasit.com/faq/OOH037) Chol/HDL ratio 4.1 <5.0 (calc) [employer] Non-HDL, (LDL+VLDL) 169(H) <130 mg/dL (calc) [employer] Comment: For patients with diabetes plus 1 major ASCVD risk factor, treating to a non-HDL-C goal of <100 mg/dL (LDL-C of <70 mg/dL) is considered a therapeutic option. Blood 02/26/2025 8:44 AM CDT 02/26/2025 8:46 AM CDT Narrative [facility] - 02/26/2025 11:36 PM CDT FASTING:YES FASTING: YES us Amanda Stout NP LAB BLOOD ORDERABLES Final Resul t [facility] [address] [place] [address] * (ABNORMAL) Comprehensive metabolic panel (02/26/2025 8:44 AM CDT) Glucose 105(H) 65 - 99 mg/dL [employer] Comment: Fasting reference interval For someone without known diabetes, a glucose value between 100 and 125 mg/dL is consistent with prediabetes and should be confirmed with a follow-up test. BUN 13 7 - 25 mg/dL [employer] [facility] Creatinine 0.71 0.50 - 1.05 mg/dL [employer] eGFR 95 > OR = 60 mL/min/1.7 3m2 [employer] BUN/creat ratio SEE NOTE: 6 - 22 (calc) [employer] Comment: Not Reported: BUN and Creatinine are within reference range. Sodium 140 135 - 146 mmol/L [employer] Potassium, pl 4.2 3.5 - 5.3 mmol/L [employer] Chloride 105 98 - 110 mmol/L [employer] CO2 27 20 - 32 mmol/L [employer] ke[facility] Beard Calcium 9.4 8.6 - 10.4 mg/dL [employer] Protein, sr 7.0 6.1 - 8.1 g/dL [facility] Albumin 4.5 3.6 - 5.1 g/dL [facility] GLOBULIN 2.5 1.9 - 3.7 g/dL (calc) [facility] Alb/glob ratio 1.8 1.0 - 2.5 (calc) [facility] Bilirubin, total 0.6 0.2 - 1.2 mg/dL [facility] Alk phos 112 37 - 153 U/L [facility] AST 19 10 - 35 U/L [facility] ALT (SGPT) 17 6 - 29 U/L [facility] Blood 02/26/2025 8:44 AM CDT 02/26/2025 8:46 AM CDT Narrative [facility] - 02/26/2025 11:36 PM CDT FASTING:YES FASTING: YES us Amanda Stout PERSONAL [employer]ES INSURANCE AGENT LAB BLOOD ORDERABLES Final Resul t Performing Organization Address City/State/[facility] Co de Phone Number [facility] [address] [place] [address] * CT Lung Cancer Screening (04/08/2024 8:59 AM CDT) Anatomical Region Laterality Modality Chest N/A Computed Tomogra phy 04/10/2024 4:50 PM CDT Narrative 04/10/2024 4:55 PM CDT EXAM DESCRIPTION: CT LUNG CANCER SCREENING REASON FOR STUDY: Screening CT of the chest in a current smoker with a 47 pack year smoking history. Additional history: None. TECHNIQUE: Low dose CT scan of the chest was performed without intravenous contrast using helical scanning technique. The exam extends from the lung apices through the lung bases. Automatic exposure control was used as a dose optimization technique. NOTE: This study was performed for the specific purposes of lung cancer screening and is not an alternative to diagnostic chest CT. RADIATION DOSE: CT dose index volume (CTDIvol) = 1.55 mGy COMPARISON: 08/28/2023 FINDINGS: SMOKING RELATED LUNG DISEASE: There are mild emphysematous changes of lungs with scattered mild subsegmental atelectasis and scarring. There are scattered mild ground-glass centrilobular airspace opacities in the bilateral lungs, which is likely due to smoking-related respiratory bronchiolitis. There is mild biapical pleural thickening and scarring. There is no definite evidence of a pneumothorax. The central airways are grossly patent. There is no definite evidence of focal consolidation or pleural effusion. There is a calcified granuloma in the right upper lobe. LUNG NODULES: There are scattered small pulmonary nodules noted, similar to the prior study. For example, there is a stable 0.4 cm pulmonary nodule in the lateral right upper lobe (axial image 91). There is a stable 0.4 cm right middle lobe pulmonary nodule (axial image 165). There is a stable subpleural 0.4 cm pulmonary nodule in the medial left upper lobe abutting the mediastinum (axial image 186). CORONARY ARTERY CALCIFICATION: Present. OTHER: The heart size is stable. There is no definite evidence of a pericardial effusion. There are mild atherosclerotic changes of the thoracic aorta and coronary vessels. There is no definite unenhanced CT evidence of mediastinal, hilar, or axillary lymphadenopathy. There are scattered subcentimeter mediastinal lymph nodes noted with largest measuring 0.6 cm in the subcarinal region (axial image 118). There is a small hiatal hernia. The visualized portions of the bilateral adrenal glands are grossly stable and unremarkable. There is mild osteopenia. There is mild dextroscoliotic curvature of the spine with degenerative changes. There is stable mild wedging of the T11 vertebral body, which may be physiologic versus sequela of prior injury/trauma. Postsurgical changes involving the left clavicle are again noted. IMPRESSION: Redemonstration of scattered small pulmonary nodules measuring up to 0.4 cm, similar to the prior study. No definite evidence of a new suspicious pulmonary nodule. Mild emphysematous changes of lungs with scattered mild subsegmental atelectasis and scarring. Scattered mild ground-glass centrilobular airspace opacities, which is likely due to smoking-related respiratory bronchiolitis. Lung-RADS category 2: Benign appearance or behavior. Recommendation: Low dose Screening CT of chest in 12 months. THIS IS AN ELECTRONICALLY VERIFIED FINAL REPORT 04/10/2024 4:55 PM - Electronically signed by Melisa KILLIAN T: Report ID: [id number] Reading Location: [id number] Procedure Note Melisa Burgos, DO - 04/10/2024 EXAM DESCRIPTION: CT LUNG CANCER SCREENING REASON FOR STUDY: Screening CT of the chest in a current smoker with a47 pack year smoking history. Additional history: None. TECHNIQUE: Low dose CT scan of the chest was performed without intravenous contrast using helical scanning technique. The exam extends from the lung apices through the lung bases. Automatic exposure control was used as adose optimization technique. NOTE: This study was performed for the specific purposes of lung cancer screening and is not an alternative to diagnostic chest CT. RADIATION DOSE: CT dose index volume (CTDIvol) = 1.55 mGy COMPARISON: 08/28/2023 FINDINGS: SMOKING RELATED LUNG DISEASE: There are mild emphysematouschanges of lungs with scattered mild subsegmental atelectasis and scarring. Thereare scattered mild ground-glass centrilobular airspace opacities in thebilateral lungs, which is likely due to smoking-related respiratory bronchiolitis. There is mild biapical pleural thickening and scarring. There is nodefinite evidence of a pneumothorax. The central airways are grossly patent.There is no definite evidence of focal consolidation or pleural effusion. There brian calcified granuloma in the right upper lobe. LUNG NODULES: There are scattered small pulmonary nodules noted, similarto the prior study. For example, there is a stable 0.4 cm pulmonary nodulein the lateral right upper lobe (axial image 91). There is a stable 0.4 cmright middle lobe pulmonary nodule (axial image 165). There is a stablesubpleural 0.4 cm pulmonary nodule in the medial left upper lobe abutting themediastinum (axial image 186). CORONARY ARTERY CALCIFICATION: Present. OTHER: The heart size is stable. There is no definite evidence of a pericardial effusion. There are mild atherosclerotic changes of thethoracic aorta and coronary vessels. There is no definite unenhanced CT evidence of mediastinal, hilar, oraxillary lymphadenopathy. There are scattered subcentimeter mediastinal lymphnodes noted with largest measuring 0.6 cm in the subcarinal region (axial [id number]). There is a small hiatal hernia. The visualized portions of the bilateral adrenal glands are grossly stable and unremarkable. There is mild osteopenia. There is mild dextroscoliotic curvature of the spine with degenerative changes. There is stable mild wedging of the T11 vertebral body, which may be physiologic versus sequela of prior injury/trauma. Postsurgical changes involving the left clavicle are again noted. IMPRESSION: Redemonstration of scattered small pulmonary nodules measuring up to 0.4cm, similar to the prior study. No definite evidence of a new suspiciouspulmonary nodule. Mild emphysematous changes of lungs with scattered mild subsegmental atelectasis and scarring. Scattered mild ground-glass centrilobular airspace opacities, which islikely due to smoking-related respiratory bronchiolitis. Lung-RADS category 2: Benign appearance or behavior. Recommendation: Low dose Screening CT of chest in 12 months. THIS IS AN ELECTRONICALLY VERIFIED FINAL REPORT 04/10/2024 4:55 PM - Electronically signed by Melisa Burgos D.O. PS T: Report ID: [id number] Reading Location: [place] [address] us Alejandra Ngo MD IMG CT PROCEDURES Final Resul t * Hepatitis C antibody (10/06/2020 8:19 AM CDT) Hep C Ab NON-REACTI VE NON-REACT SHEELA [facility] SIGNAL TO CUT-OFF 0.02 <1.00 [facility] Comment: HCV antibody was non-reactive. There is no laboratory evidence of HCV infection. In most cases, no further action is required. However, if recent HCV exposure is suspected, a test for HCV RNA (test code 30920) is suggested. For additional information please refer to http://education.[employer] [facility]/faq/EKY30a5 (This link is being provided for informational/ educational purposes only.) Blood specimen (specimen) 10/06/2020 8:19 AM CDT 10/06/2020 8:20 AM CDT Narrative [facility] - 10/07/2020 8:11 AM CDT FASTING:YES FASTING: YES us Amanda Stout NP LAB MICROBIOLOGY - GENERAL ORDER [place] Final Result [facility] [facility] [id number] [address] [id number] * HM COLONOSCOPY (01/27/2017) us Historical Provider HEALTH MAINTENANCE Final Result * Pap Smear (07/12/2016) Historical Provider LAB PATHOLOGY ORDERABLES Final Result from Last 3 Months or Most Recently Relevant to Health Maintenance Insurance MEDICARE [facility] MEDICARE [place] [address] MEDICARE [facility] [address] [place] [address] MEDICARE Care Teams Armature [employer] Relationship Specialty Start Date End Date Amanda Stout NP PCP - General Family Practice 04/17/20
== END 2025-03-20 10:47 | disposition home or self-care (01) ==
LOC: ANHFOHIMG 10:58
PROVIDERS: PCP Family Medicine; Visit Provider Family Medicine
DX: M85.89 Other specified disorders of bone density and structure, multiple sites (principal)
CPT/HCPCS: 77080